=== PATIENT | male | born 1995 | race Caucasian/White ===

== ENCOUNTER 2021-06-09 22:28 | Emergency (ER) | payer OTHER ==
[~2021-06-09] VITALS: Ht 180.3 cm; Wt 99.8 kg
[2021-06-09] MEDS ORDERED: OXYCODONE HCL5 MG PO (22:51)
[2021-06-09] MEDS ORDERED: WELLBUTRIN SR150 MG PO (22:52)
[2021-06-09] MEDS ORDERED: ASPIR-TRIN325 MG PO (22:52)
[2021-06-09] MEDS ORDERED: NEURONTIN100 MG PO (22:53)
[2021-06-10] MEDS ORDERED: DILAUDID2 MG PO (00:12)
== END 2021-06-10 01:06 | disposition home or self-care (01) ==
LOC: ED 22:28
DX: M96.89 Other intraoperative and postprocedural complications and disorders of the musculoskeletal system (principal); Z79.899 Other long term (current) drug therapy; Z79.82 Long term (current) use of aspirin
CPT/HCPCS: 36415; 80048; 83605; 85025; 96365; 96375; 99283-25; J0696; J1170; J2405; J7030